=== PATIENT | male | born 1960 | race Caucasian/White ===

== ENCOUNTER 2017-06-29 16:18 | Emergency (ER) | payer BC ==
[2017-06-29 16:42] VITALS: BP 162/105; PULSE 84; TEMP 98.4; BMI 26.4
--- NOTE | 2017-06-29 17:17 | PDOC ---
History of Present Illness - General History Source: Patient Exam Limitations: No Limitations - History of Present Illness Initial Comments: 06/29/17 18:57 The patient is a 57 year old male with past medical history of hyperlipidemia, DVT, PE, TIA, and CT who was sent to the ED by his PCP after having an ultrasound today that reveals left sided DVT. The patient states that for the past few weeks he has been having pain in his right thigh and recently developed shooting pains in his left lower extremity when he walks. For the past two days he also has been experiencing left sided chest pain which is worse with exertion, but denies any associated shortness of breath, palpitations , or lower extremity swelling. He denies any recent illness, fevers, chills, cough, or urinary symptoms. PCP: Gaby Curry Social: Denies any drugs or tobacco use. Reports having a glass of wine with dinner <Yulissa Patterson - Last Filed: 06/29/17 19:52> <Sultana Carreon - Last Filed: 07/02/17 00:54> <Marc Robles - Last Filed: 07/02/17 18:39> - General Chief Complaint: Pain, Acute Stated Complaint: SENT FROM ULTRASOUND POSITIVE DVT LEFT LEG Time Seen by Provider: 06/29/17 16:51 Past History <Yulissa Patterson - Last Filed: 06/29/17 19:52> <Sultana Carreon - Last Filed: 07/02/17 00:54> - Past Medical History Cardiac Disorders: Yes (CT 2001) CVA: Yes (2009) COPD: No HTN: Yes Hypercholesterolemia: Yes Other medical history: PULMONARY EMBOLISM DVT - Surgical History Cardiac Surgery: Yes (cath) - Suicide/Smoking/Psychosocial Hx Smoking Status: No Smoking History: Former smoker Have you smoked in the past 12 months: No Number of Cigarettes Smoked Daily: 0 If you are a former smoker, when did you quit?: YEARS AGO Information on smoking cessation initiated: No Hx Alcohol Use: Yes (SOCIAL) Drug/Substance Use Hx: No Substance Use Type: Alcohol Hx Substance Use Treatment: No <Marc Robles - Last Filed: 07/02/17 18:39> - Past Medical History Allergies/Adverse Reactions: Allergies Allergy/AdvReac Type Severity Reaction Status Date / Time No Known Allergies Allergy Verified 06/29/17 16:23 Home Medications: Ambulatory Orders Ramipril [Altace] 10 mg PO DAILY 05/23/11 Simvastatin 20 mg PO DAILY 06/29/17 Warfarin Sodium [Coumadin] 5 mg PO Q2D 06/29/17 Warfarin Sodium [Coumadin] 10 mg PO Q2D 06/29/17 Review of Systems - Review of Systems Able to Perform ROS?: Yes Comments:: 06/29/17 18:57 CONSTITUTIONAL: No reported: Fever, Chills, Diaphoresis, Generalized Weakness, Malaise, Loss of Appetite HEENT: No reported: Rhinorrhea, Nasal Congestion, Throat Pain, Throat Swelling, Difficulty Swallowing, Mouth Swelling, Ear Pain, Eye Pain, Visual Changes CARDIOVASCULAR: (+) Chest pain No reported: Syncope, Palpitations, Irregular Heart Rate, Lightheadedness, Peripheral Edema RESPIRATORY: No reported: Cough, Shortness of Breath, SOB with Exertion, Orthopnea, Wheezing , Stridor, Hemoptysis GASTROINTESTINAL: No reported: Abdominal pain, Abdominal Distension, Nausea, Vomiting, Diarrhea, Constipation, Melena, Hematochezia GENITOURINARY: No reported: Dysuria, Frequency, Urgency, Hesitancy, Flank Pain, Genital Pain MUSCULOSKELETAL: (+) lower extremity pain No reported: Joint Swelling, Back pain, Neck Pain SKIN: No reported: Rash, Itching, Pallor HEMEATOLOGIC/IMMUNOLOGIC: No reported: Easy Bleeding, Easy Bruising, Lymphadenopathy, Frequent infections ENDOCRINE: No reported: Unexplained Weight Gain, Unexplained Weight Loss, Heat Intolerance , Cold Intolerance NEUROLOGIC: No reported: Headache, Focal Weakness, Paresthesias, Vertigo, Lightheadedness, Unsteady Gait, Seizure, Mental Status Changes, Incontinence PSYCHIATRIC: No reported: Anxiety, Depression All Other Systems: Reviewed and Negative <Yulissa Patterson - Last Filed: 06/29/17 19:52> *Physical Exam - Vital Signs Last Vital Signs Temp Pulse Resp BP Pulse Ox 98.4 F 84 16 162/105 100 06/29/17 16:22 06/29/17 16:22 06/29/17 16:22 06/29/17 16:22 06/29/17 16:22 - Physical Exam Comments: 06/29/17 18:57 GENERAL: The patient is awake, alert, and fully oriented, Nontoxic - in no acute distress. HEAD: Normocephalic, atraumatic. EYES: extraocular movements intact, sclera anicteric, conjunctiva clear. ENT: Normal voice, Moist mucous membranes. NECK: Normal range of motion, supple LUNGS: Breath sounds equal, clear to auscultation bilaterally. No wheezes, no rhonchi, no rales. HEART: Regular rate and rhythm, normal S1 and S2 without murmur, rub or gallop. ABDOMEN: Soft, nontender, normoactive bowel sounds. No guarding, no rebound. . No CVA tenderness EXTREMITIES: Normal range of motion, no edema. Neg homans sign b/l. NEUROLOGICAL: No facial assymetry, Normal speech, PSYCH: Normal mood, normal affect. SKIN: Warm, Dry, normal turgor, <Yulissa Patterson - Last Filed: 06/29/17 19:52> - Vital Signs Last Vital Signs Temp Pulse Resp BP Pulse Ox 98.4 F 84 16 162/105 100 06/29/17 16:22 06/29/17 16:22 06/29/17 16:22 06/29/17 16:22 06/29/17 16:22 <Sultana Carreon - Last Filed: 07/02/17 00:54> - Vital Signs Last Vital Signs Temp Pulse Resp BP Pulse Ox 98.4 F 84 16 162/105 100 06/29/17 16:22 06/29/17 16:22 06/29/17 16:22 06/29/17 16:22 06/29/17 16:22 <Marc Robles - Last Filed: 07/02/17 18:39> Moderate Sedation - Procedure Monitoring Vital Signs: Vital Signs Temp Pulse Resp BP Pulse Ox 98.4 F 84 16 162/105 100 06/29/17 16:22 06/29/17 16:22 06/29/17 16:22 06/29/17 16:22 06/29/17 16:22 <Yulissa Patterson - Last Filed: 06/29/17 19:52> - Procedure Monitoring Vital Signs: Vital Signs Temp Pulse Resp BP Pulse Ox 98.4 F 84 16 162/105 100 06/29/17 16:22 06/29/17 16:22 06/29/17 16:22 06/29/17 16:22 06/29/17 16:22 <Sultana Carreon - Last Filed: 07/02/17 00:54> - Procedure Monitoring Vital Signs: Vital Signs Temp Pulse Resp BP Pulse Ox 98.4 F 84 16 162/105 100 06/29/17 16:22 06/29/17 16:22 06/29/17 16:22 06/29/17 16:22 06/29/17 16:22 <Marc Robles - Last Filed: 07/02/17 18:39> Heart Score/ECG Review - ECG Impressions Comment:: 06/29/17 18:56 Twelve-lead EKG was performed and reviewed by me. There is normal sinus rhythm with a normal rate. Rate of 76 The axis is normal. The intervals are normal. There is normal R wave progression T wave inversion in lead 3 No change when compared with previous EKG in 2009 <TravisMarc - Last Filed: 07/02/17 18:39> ED Treatment Course - LABORATORY CBC & Chemistry Diagram: 06/29/17 17:36 06/29/17 17:36 - ADDITIONAL ORDERS Additional order review: Laboratory Results 06/29/17 06/29/17 06/29/17 17:36 17:36 17:36 PT with INR 27.3 H INR 2.48 H Sodium 135 L Potassium 3.8 Chloride 103 Carbon Dioxide 26 Anion Gap 6 L BUN 16 Creatinine 1.0 Creat Clearance w eGFR > 60 Random Glucose 94 Calcium 8.5 Total Bilirubin 0.8 AST 20 ALT 15 Alkaline Phosphatase 43 Creatine Kinase 164 Creatine Kinase Index 1.3 CK-MB (CK-2) 2.2 Troponin I < 0.03 Total Protein 6.6 Albumin 4.1 06/29/17 17:36 RBC 4.84 MCV 89.4 MCHC 33.4 RDW 15.3 MPV 7.1 L Neutrophils % 62.7 Lymphocytes % 23.8 Monocytes % 10.2 Eosinophils % 2.4 Basophils % 0.9 - RADIOLOGY Radiograph Interpretation: 06/29/17 19:52 chest CTA as reviewed by Dr. Dallas reports no evidence of PE, no interval change since prior exam <Yulissa Patterson - Last Filed: 06/29/17 19:52> - LABORATORY CBC & Chemistry Diagram: 06/29/17 17:36 06/29/17 17:36 - ADDITIONAL ORDERS Additional order review: Laboratory Results 06/29/17 06/29/17 06/29/17 20:20 17:36 17:36 PT with INR INR D-Dimer Sodium Potassium Chloride Carbon Dioxide Anion Gap BUN Creatinine Creat Clearance w eGFR Random Glucose Calcium Total Bilirubin AST ALT Alkaline Phosphatase Creatine Kinase Creatine Kinase Index CK-MB (CK-2) Troponin I < 0.03 B-Natriuretic Peptide Total Protein Albumin Blood Type A POSITIVE A POSITIVE Antibody Screen Negative Negative 06/29/17 06/29/17 06/29/17 17:36 17:36 17:35 PT with INR 27.3 H INR 2.48 H D-Dimer < 200 Sodium 135 L Potassium 3.8 Chloride 103 Carbon Dioxide 26 Anion Gap 6 L BUN 16 Creatinine 1.0 Creat Clearance w eGFR > 60 Random Glucose 94 Calcium 8.5 Total Bilirubin 0.8 AST 20 ALT 15 Alkaline Phosphatase 43 Creatine Kinase 164 Creatine Kinase Index 1.3 CK-MB (CK-2) 2.2 Troponin I B-Natriuretic Peptide 83.08 Total Protein 6.6 Albumin 4.1 Blood Type Antibody Screen 06/29/17 17:36 RBC 4.84 MCV 89.4 MCHC 33.4 RDW 15.3 MPV 7.1 L Neutrophils % 62.7 Lymphocytes % 23.8 Monocytes % 10.2 Eosinophils % 2.4 Basophils % 0.9 <Sultana Carreon - Last Filed: 07/02/17 00:54> - LABORATORY CBC & Chemistry Diagram: 06/29/17 17:36 06/29/17 17:36 - RADIOLOGY Radiology Studies Ordered: Category Date Time Status CHEST PA & LAT [RAD] Stat Radiology 06/29/17 17:14 Ordered <Marc Robles - Last Filed: 07/02/17 18:39> Medical Decision Making - Medical Decision Making 06/29/17 17:15 57y M hx of DVT/PE on coumadin, CVA, CAD, HTN, HL, sent to the ED by PMD for evaluation of DVT. Pt notes he has been ahving cramping in his R leg, had an US of his legs and found a nonocclusive thrombus in popliteal vein on his L leg, also endorses some sob/chest pain on exertion when ambulating the past few days. concern for clotting through coumadin - may need filter possible PE wiill obtail blood work, CTA will reassess A portion of this note was documented by scribe services under my direction. I have reviewed the details of the note, within reason, and agree with the documentation with the following case summary and management plan written by me 06/29/17 19:05 case signed out to dr. Carreon to fu with results and disposition the pt <Marc Robles - Last Filed: 07/02/17 18:39> *DC/Admit/Observation/Transfer - Attestations Scribe Attestion: 06/29/17 18:57 Documentation prepared by Yulissa Patterson, acting as medical dermatologist for Marc Robles MD. <Yulissa Patterson - Last Filed: 06/29/17 19:52> <Sultana Carreon - Last Filed: 07/02/17 00:54> <Marc Robles - Last Filed: 07/02/17 18:39> Diagnosis at time of Disposition: Bilateral lower extremity pain, Atypical chest pain - Discharge Dispostion Disposition: HOME Condition at time of disposition: Stable - Patient Instructions Printed Discharge Instructions: DI for Atypical Chest Pain Additional Instructions: Continue medications as prescribed Follow-up with Dr. Curry within the next 48 hours Call milk pickup truck driver office tomorrow morning to arrange follow-up within the next 2 -3 days Return to ER if you have more severe chest pain/shortness of breath/worsening lower extremity pain
[2017-06-29 17:49] LABS: INR 2.48 (0.82-1.09); PROTHROMBIN TIME (PATIENT) 27.3 SEC (10.2-13.0)
[2017-06-29 17:53] LABS: BASO % 0.9 % (0-2.0); EOS % 2.4 % (0-4.5); HEMATOCRIT 43.3 % (35.4-49); HEMOGLOBIN 14.4 GM/dl (11.7-16.9); LYMPH % 23.8 % (8-40); MCH 29.8 pg (25.7-33.7); MCHC 33.4 g/dl (32.0-35.9); MEAN CELL VOLUME 89.4 fl (80-96); MEAN PLT VOLUME 7.1 fl (7.5-11.1); MONO % 10.2 % (3.8-10.2); NEUT % 62.7 % (42.8-82.8); PLATELET COUNT 269 K/MM3 (134-434); RBC 4.84 M/mm3 (4.00-5.60); RDW 15.3 % (11.9-15.9); WHITE BLOOD COUNT 5.6 K/mm3 (4.0-10.8)
[2017-06-29 17:56] LABS: ALBUMIN 4.1 g/dl (3.5-5.0); ALK PHOS 43 U/L (32-92); ANION GAP 6 (8-16); BILIRUBIN,TOTAL 0.8 mg/dl (0.2-1.0); BLOOD UREA NITROGEN 16 mg/dl (7-18); CALCIUM 8.5 mg/dl (8.4-10.2); CHLORIDE 103 mmol/L (98-107); CO2 26 mmol/L (22-28); GLUCOSE,RANDOM 94 mg/dl (74-106); POTASSIUM 3.8 mmol/L (3.5-5.1); SGOT/AST 20 U/L (10-42); SGPT/ALT 15 U/L (10-40); SODIUM 135 mmol/L (136-145); TOT PROT 6.6 g/dl (6.4-8.3)
[2017-06-29 19:05] LABS: N-TERMINAL BNP 83.08 pg/ml (5-125)
--- NOTE | 2017-06-29 20:12 | PDOC ---
*Physical Exam - Vital Signs Last Vital Signs Temp Pulse Resp BP Pulse Ox 98.4 F 84 16 162/105 100 06/29/17 16:22 06/29/17 16:22 06/29/17 16:22 06/29/17 16:22 06/29/17 16:22 ED Treatment Course - LABORATORY CBC & Chemistry Diagram: 06/29/17 17:36 06/29/17 17:36 - ADDITIONAL ORDERS Additional order review: Laboratory Results 06/29/17 06/29/17 06/29/17 17:36 17:36 17:36 PT with INR 27.3 H INR 2.48 H D-Dimer Sodium 135 L Potassium 3.8 Chloride 103 Carbon Dioxide 26 Anion Gap 6 L BUN 16 Creatinine 1.0 Creat Clearance w eGFR > 60 Random Glucose 94 Calcium 8.5 Total Bilirubin 0.8 AST 20 ALT 15 Alkaline Phosphatase 43 Creatine Kinase 164 Creatine Kinase Index 1.3 CK-MB (CK-2) 2.2 Troponin I < 0.03 B-Natriuretic Peptide 83.08 Total Protein 6.6 Albumin 4.1 06/29/17 17:35 PT with INR INR D-Dimer < 200 Sodium Potassium Chloride Carbon Dioxide Anion Gap BUN Creatinine Creat Clearance w eGFR Random Glucose Calcium Total Bilirubin AST ALT Alkaline Phosphatase Creatine Kinase Creatine Kinase Index CK-MB (CK-2) Troponin I B-Natriuretic Peptide Total Protein Albumin 06/29/17 17:36 RBC 4.84 MCV 89.4 MCHC 33.4 RDW 15.3 MPV 7.1 L Neutrophils % 62.7 Lymphocytes % 23.8 Monocytes % 10.2 Eosinophils % 2.4 Basophils % 0.9 Progress Note - Progress Note Progress Note: Care of this patient receives from Dr. Robles. CT angiogram of the chest to rule out pulmonary embolism is negative for PE or other acute abnormalities. Laboratory evaluation shows no elevation of troponin or d-dimer. Case discussed with patient's PMD, . Patient should continue his Coumadin as prescribed, even though he is very mildly super therapeutic. Also, because he has developed mild exertional chest pain, he should follow-up with a book illustrator within the next 48 hours. Patient has been given referral information for the Dr. Gonzales group and Dr. Valadez group. *DC/Admit/Observation/Transfer Diagnosis at time of Disposition: Bilateral lower extremity pain, Atypical chest pain - Discharge Dispostion Disposition: HOME Condition at time of disposition: Stable - Referrals - Patient Instructions Printed Discharge Instructions: DI for Atypical Chest Pain Additional Instructions: Continue medications as prescribed Follow-up with Dr. Curry within the next 48 hours Call book illustrator office tomorrow morning to arrange follow-up within the next 2 -3 days Return to ER if you have more severe chest pain/shortness of breath/worsening lower extremity pain - Post Discharge Activity
--- NOTE | 2017-06-30 16:20 | EKG ---
Test Reason : Blood Pressure : / mmHG Vent. Rate : 076 BPM Atrial Rate : 076 BPM P-R Int : 154 ms QRS Dur : 098 ms QT Int : 386 ms P-R-T Axes : 028 036 013 degrees QTc Int : 434 ms NORMAL SINUS RHYTHM NORMAL ECG WHEN COMPARED WITH ECG OF 23-MAY-2011 02:42, NO SIGNIFICANT CHANGE WAS FOUND Confirmed by MD Salgado Daniel ([id number]) on 06/30/2017 4:19:38 PM Referred By: POONAM Confirmed By:Dion Salgado MD
== END 2017-06-29 20:56 | disposition home or self-care (01) ==
LOC: FER 16:18
DX: R07.89 Other chest pain (principal); M79.662 Pain in left lower leg; M79.661 Pain in right lower leg; E78.5 Hyperlipidemia, unspecified; Z86.718 Personal history of other venous thrombosis and embolism; I25.2 Old myocardial infarction; Z86.73 Personal history of transient ischemic attack (TIA), and cerebral infarction without residual deficits; Z87.891 Personal history of nicotine dependence
CPT/HCPCS: 36415; 71046-TC-FY; 71275-TC; 80053; 82550; 82553; 83880; 84484; 85025; 85379; 85610; 86850; 86900; 86901; 93005; 99282-25

== ENCOUNTER 2019-01-31 13:56 | Emergency (ER) | payer BC ==
[2019-01-31] MEDS ORDERED: SODIUM CHLORIDE 1,000 ML IV ONE (13:58)
[2019-01-31 14:07] VITALS: TEMP 98; BMI 27.7
[2019-01-31 14:41] LABS: HEMOGLOBIN 15.1 GM/dl (11.7-16.9); RDW 14.1 % (11.9-15.9)
[2019-01-31 14:48] LABS: BASO % 2.7 % (0-2.0); EOS % 3.3 % (0-4.5); HEMATOCRIT 44.5 % (35.4-49); LYMPH % 25.4 % (8-40); MCH 30.5 pg (25.7-33.7); MCHC 33.9 g/dl (32.0-35.9); MEAN CELL VOLUME 90.1 fl (80-96); MEAN PLT VOLUME 7.7 fl (7.5-11.1); MONO % 9.7 % (3.8-10.2); NEUT % 58.9 % (42.8-82.8); PLATELET COUNT 397 K/MM3 (134-434); RBC 4.94 M/mm3 (4.00-5.60); WHITE BLOOD COUNT 7.6 K/mm3 (4.0-10.8)
[2019-01-31 14:55] LABS: ACTIVATED PTT 36.7 SECONDS (25.2-36.5)
[2019-01-31 14:56] LABS: ALBUMIN 4.1 g/dl (3.4-5.0); BILIRUBIN,TOTAL 0.4 mg/dl (0.2-1); CALCIUM 9.7 mg/dl (8.5-10); CREATININE 1.1 mg/dl (0.55-1.3); POTASSIUM 3.9 mmol/L (3.5-5.1); TOT PROT 7.1 g/dl (6.4-8.2)
[2019-01-31 14:59] LABS: INR 1.11 (0.82-1.09); PROTHROMBIN TIME (PATIENT) 12.4 SEC (10.2-13.0)
--- NOTE | 2019-01-31 15:07 | PDOC ---
Documentation entered by Sommer Salazar SCRIBE, acting as scribe for Troy Duron MD. Troy Duron MD: This documentation has been prepared by the Marie small Xhesika, SCRIBE, under my direction and personally reviewed by me in its entirety. I confirm that the documentation accurately reflects all work, treatment, procedures, and medical decision making performed by me. History of Present Illness - General Chief Complaint: Cold Symptoms Stated Complaint: COUGH UP WITH SPECKS OF BLOOD Time Seen by Provider: 01/31/19 13:58 History Source: Patient Exam Limitations: No Limitations - History of Present Illness Initial Comments: 01/31/19 14:26 The patient is a 58 year old male with a significant PMH of HTN, HLD, TIA/LA ( 2001), spinal injuries, hernia repair 918 years ago) pneumonia (no recent hospitalizations), PE (first diagnosed 2000, currently on lovenox twice a day) and DVT (last diagnosed june 2017 ) who presents to the emergency department from Dr. Fontaine office for 1 week of cough with hemoptysis . Patient notes 1 week ago he developed fevers and chills which have since subsided. Pt notes his cough is associated with small bright red strings/ clots. pt reports mild chest pain when walking up hills which he thinks is due to his bronchitis symptoms. Pt notes he notices crackles when he breathes deeply. Pt also notes he sleep with 2 pillows which he says is due to his spinal injuries The patient denies shortness of breath, headache and dizziness. Denies fever, chills,nausea, vomiting, diarrhea and constipation. Denies dysuria, frequency, urgency and hematuria. Allergies: NKDA Social history: Occasional alcohol use. Denies tobacco use. PCP: Dr. Curry Past History - Past Medical History Allergies/Adverse Reactions: Allergies Allergy/AdvReac Type Severity Reaction Status Date / Time No Known Allergies Allergy Verified 01/31/19 13:58 Home Medications: Ambulatory Orders Ramipril [Altace] 10 mg PO DAILY 05/23/11 Simvastatin 20 mg PO DAILY 06/29/17 Azithromycin [Zithromax 250mg Tablets -] 250 mg PO UTDICT #6 tab 01/31/19 Cardiac Disorders: Yes (LA 2001) CVA: Yes (2009) COPD: No HTN: Yes Hypercholesterolemia: Yes - Surgical History Cardiac Surgery: Yes (cath) - Psycho Social/Smoking Cessation Hx Smoking Status: No Smoking History: Former smoker Have you smoked in the past 12 months: No Number of Cigarettes Smoked Daily: 0 If you are a former smoker, when did you quit?: YEARS AGO Information on smoking cessation initiated: Yes Hx Alcohol Use: Yes (OCASIONAL) Drug/Substance Use Hx: No Substance Use Type: Alcohol Hx Substance Use Treatment: No Review of Systems - Review of Systems Constitutional: Yes: Chills, Fever (resolved on day 1-2) Respiratory: Yes: Cough, Shortness of Breath, SOB with Exertion, Hemoptysis Cardiac (ROS): Yes: Chest Pain (subacute with exertion for several weeks/months) . No: Edema ABD/GI: No: Diarrhea, Nausea, Vomiting Musculoskeletal: Yes: Back Pain (chronic) Neurological: No: Headache All Other Systems: Reviewed and Negative *Physical Exam - Vital Signs Last Vital Signs Temp Pulse Resp BP Pulse Ox 98 F 73 17 148/109 H 100 01/31/19 13:57 01/31/19 13:57 01/31/19 13:57 01/31/19 13:57 01/31/19 13:57 - Physical Exam 01/31/19 14:27 GENERAL: The patient is awake, alert, and fully oriented, in no acute distress. HEAD: Normal with no signs of trauma. EYES: Pupils equal, round and reactive to light, extraocular movements intact, sclera anicteric, conjunctiva clear with no pallor. ENT: Ears normal, nares patent, oropharynx clear without exudates. Moist mucous membranes. NECK: Normal range of motion, supple without lymphadenopathy, JVD, or masses. LUNGS: +Breath sounds clear, occasional irregularly, possible premature beat. No wheeze/crackles. HEART: Regular rate and rhythm, normal S1 and S2 without murmur or rub. ABDOMEN: Soft/nontender/nondistended. BS wnl. No guarding or rebound. No palpable masses. No hepatosplenomegaly. EXTREMITIES: Normal range of motion, no edema. No clubbing or cyanosis. No cords, erythema, or tenderness. NEUROLOGICAL: Cranial nerves II through XII grossly intact. Normal speech, normal gait. PSYCH: Normal mood, normal affect. SKIN: Warm, Dry, normal turgor, no rashes or lesions noted. Heart Score/ECG Review #1 ECG reviewed & interpreted by me at: 15:17 General ECG Interpretation: Sinus Rhythm (sinus arrhythmia noted), Normal Rate ( 86), Normal Intervals (qtc 435), No acute ischemic changes ED Treatment Course - LABORATORY CBC & Chemistry Diagram: 01/31/19 14:07 01/31/19 14:07 - RADIOLOGY Radiology Studies Ordered: Category Date Time Status CHEST CTA [CT] Stat CT Scan 01/31/19 13:59 Ordered Medical Decision Making - Medical Decision Making 01/31/19 14:23 58-year-old male with complicated history of DVT/PE initially diagnosed in 2000 , on lifelong anticoagulation currently taking Lovenox twice daily, question angina/LA in the postoperative period during hernia repair 18 years ago, presents now in the setting of 1 week of bronchitis/URI type symptoms of cough sent by his PCP for analysis of hemoptysis. Well-appearing here, ambulatory, speaking full sentences, normal vital signs, no acute distress Exam as noted and within normal limits without acute respiratory findings Slight irregularity in heart rate No edema No other stigmata of bleeding 58-year-old male on anticoagulation with history of PE presents now with low volume blood-tinged hemoptysis in the setting of bronchitis type symptoms over the past week, hemodynamically stable without acute respiratory distress. Check labs EKG CTA chest Reassess, disposition and consultation with patient's referring PCP, Dr. Curry 01/31/19 15:37 labs wnl. CTA chest performed, pending report. clinically unchanged and well appearing. 01/31/19 17:57 cta without acute PE, no infiltrate/hemorrhage/effusion/infiltrate. pt feeling well, speaking full sentences, no hemoptysis throughout 4h ED stay. d/w Dr. Curry, agrees with d/c plan. wants course of zpack for bronchitis/ bronchiectasis and will f/u in office. pt agrees with plan, z-pack sent to pharmacy. will continue a/c. understands return criteria. Discharge - Discharge Information Problems reviewed: Yes Clinical Impression/Diagnosis: Cough with hemoptysis, History of pulmonary embolism, Bronchitis Condition: Stable Disposition: HOME - Additional Discharge Information Prescriptions: Azithromycin [Zithromax 250mg Tablets -] 250 mg PO UTDICT #6 tab - Follow up/Referral Referrals: Gaby Curry MD [Primary Care Provider] - - Patient Discharge Instructions Patient Printed Discharge Instructions: DI for Viral Upper Respiratory Infection -- Adult Additional Instructions: Activity as tolerated. Stay hydrated. Blood tests showed no acute abnormalities. A CAT scan of the chest showed no evidence of pulmonary embolism or infection or bleeding in the lungs. As discussed with Dr. Curry, take azithromycin as prescribed as an antibiotic for ongoing bronchitis. Tylenol 1000 mg every 8 hours and/or ibuprofen 600 mg every 8 hours as needed for pain. Continue your medications as previously prescribed by your physician, including the Lovenox. You should follow up with Dr. Curry and your clinic scheduler as soon as possible regarding today's emergency department visit. Return to the emergency department for any new or concerning symptoms, particularly worsening bloody cough, difficulty breathing, high fevers or chest pain. - Post Discharge Activity
[2019-01-31 16:36] VITALS: BP 152/101; PULSE 80
--- NOTE | 2019-02-01 10:17 | EKG ---
Test Reason : Blood Pressure : / mmHG Vent. Rate : 086 BPM Atrial Rate : 086 BPM P-R Int : 146 ms QRS Dur : 096 ms QT Int : 364 ms P-R-T Axes : 034 029 011 degrees QTc Int : 435 ms POOR DATA QUALITY, INTERPRETATION MAY BE ADVERSELY AFFECTED NORMAL SINUS RHYTHM WITH SINUS ARRHYTHMIA NORMAL ECG WHEN COMPARED WITH ECG OF 29-JUN-2017 16:53, NO SIGNIFICANT CHANGE WAS FOUND Confirmed by James Sol MD ([id number]) on 02/01/2019 10:16:46 AM Referred By: Confirmed By:James Sol MD
== END 2019-01-31 18:10 | disposition home or self-care (01) ==
LOC: FER 13:56
PROC: 3E0337Z Introduction of Electrolytic and Water Balance Substance into Peripheral Vein, Percutaneous Approach (ICD-10-PCS; principal; 2019-01-31)
DX: J20.9 Acute bronchitis, unspecified (principal); R51 Headache; R04.2 Hemoptysis; I10 Essential (primary) hypertension; I25.2 Old myocardial infarction; E78.5 Hyperlipidemia, unspecified; Z86.73 Personal history of transient ischemic attack (TIA), and cerebral infarction without residual deficits; Z86.711 Personal history of pulmonary embolism; Z86.718 Personal history of other venous thrombosis and embolism; Z87.891 Personal history of nicotine dependence
CPT/HCPCS: 36415; 71275-TC; 80053; 85025; 85610; 85730; 86850; 86900; 86901; 93005; 99283-25; J7030; Q9967